=== PATIENT | male | born 1990 | race Two or more races ===

== ENCOUNTER 2020-11-09 15:57 | Emergency (ER) | payer OTHER ==
[~2020-11-09] VITALS: Ht 170.2 cm; Wt 86.2 kg
[2020-11-09 16:05] VITALS: BP 145/81
[2020-11-09] MEDS ORDERED: KETOROLAC TROMETHAMINE INJ 60 MG/2 ML VIAL IM ONE (17:30)
[2020-11-09] MEDS ORDERED: KETOROLAC TROMETHAMINE INJ 30 MG/ML VIAL ONE (17:38)
--- NOTE | 2020-11-09 18:15 | NUR ---
Patient discharged to home in stable condition. Written and verbal after care instructions given. Patient verbalizes understanding of instruction.
== END 2020-11-09 18:14 | disposition home or self-care (01) ==
LOC: ER 16:03
DX: S77.12XA Crushing injury of left thigh, initial encounter (principal); S70.12XA Contusion of left thigh, initial encounter; S30.810A Abrasion of lower back and pelvis, initial encounter; V83.9XXA Unspecified occupant of special industrial vehicle injured in nontraffic accident, initial encounter; Y93.89 Activity, other specified; Y92.89 Other specified places as the place of occurrence of the external cause; Y99.8 Other external cause status
CPT/HCPCS: 72170; 73552; 96372; 99284; J1885